=== PATIENT | female | born 1940 | race Caucasian/White ===

== ENCOUNTER 2019-10-19 07:03 | Day surgery (SDC) | payer MEDICARE, OTHER ==
[~2019-10-19] VITALS: Ht 167.6 cm; Wt 83.8 kg
[~2019-10-19 07:03] MED LIST: ASCO500 PO; ASPI325 PO; Aspir 8181 MG PO; BASAGLAR K100 UNIT/1 SC; CALCA500CH PO; CALCIUM PO; CYAN500 PO; Cinnamon500 MG PO; FISH OIL 1,2001 EAC7 PO; FISH1000 PO; GLYB5; Glucophage PO; HUMULIN N100 UNIT/1 SC; INSULANI SC; INSULANPEN SQ; LISI5 PO; LISINOPRIL PO; METF500; METF500 PO; METO50ER PO; METOPROLOL PO; MULT50L PO; MULVITA PO; PRAV20 PO; PRAV40 PO; PROM25 PO; Prinivil10 MG PO; RANI150 PO; TIMO.25OPS OU; TOCO1000 PO; TOCO400 PO; VITA25000 PO; Vitamin C100 M1 PO; Vitamin D2000 UNIT PO; [UNRECOGNIZED DRUG - REMARK] PO
== END 2019-10-19 09:11 | disposition home or self-care (01) ==
LOC: ORSCSDS 07:03
PROVIDERS: Ophthalmology
PROC: 08RK3JZ Replacement of Left Lens with Synthetic Substitute, Percutaneous Approach (ICD-10-PCS; principal; 2019-10-19 08:00)
DX: H25.12 Age-related nuclear cataract, left eye (principal); I10 Essential (primary) hypertension; E11.9 Type 2 diabetes mellitus without complications; E78.00 Pure hypercholesterolemia, unspecified; Z79.4 Long term (current) use of insulin; Z79.84 Long term (current) use of oral hypoglycemic drugs; Z79.899 Other long term (current) drug therapy
CPT/HCPCS: 82947; J2001; J2250; J3010; J3301; J7040; V2632

== ENCOUNTER 2024-10-23 15:55 | Emergency (ER) | payer OTHER ==
[~2024-10-23] VITALS: Ht 167.6 cm; Wt 76.3 kg
[2024-10-23] MEDS ORDERED: Tenecteplase 50 MG / Kit IV ONE (16:25)
[2024-10-23 16:26] LABS: BASOPHILS ABSOLUTE AUTO 0.03 K/mm3 (0.00-0.23); BASOPHILS PERCENT AUTO 1 % (0-2); EOSINOPHILS ABSOLUTE AUTO 0.12 K/mm3 (0.00-0.68); EOSINOPHILS PERCENT AUTO 2 % (0-6); Hematocrit 39.2 % (33.0-51.0); Hemoglobin 13.1 g/dL (11.5-16.0); IMMATURE GRAN ABSOLUTE AUTO 0.02 K/mm3 (0.00-0.10); IMMATURE GRAN PERCENT AUTO 0 % (0-1); LYMPHOCYTES ABSOLUTE AUTO 1.91 K/mm3 (0.84-5.20); LYMPHOCYTES PERCENT AUTO 30 % (21-46); MONOCYTES ABSOLUTE AUTO 0.65 K/mm3 (0.16-1.47); MONOCYTES PERCENT AUTO 10 % (4-13); Mean Corpuscular HGB Conc 33.4 g/dL (31.5-36.5); Mean Corpuscular Volume 90 fL (80-100); NEUTROPHILS ABSOLUTE AUTO 3.71 K/mm3 (1.96-9.15); NEUTROPHILS PERCENT AUTO 58 % (41-73); NRBC ABSOLUTE 0.00 K/mm3 (0.00-0.02); NRBC Auto 0.0 /100 WBC (0.0-0.2); Platelet Count 242 K/mm3 (150-400); RDW Coefficient Variation 11.9 % (11.7-14.2); RDW Standard Deviation 39.1 fL (35.1-46.3)
[2024-10-23 16:37] LABS: Alanine Aminotransfer (ALT/SGP 27.0 U/L (12-78); Albumin, Blood 3.4 g/dL (3.4-5.0); Albumin/Globulin Ratio 0.9 (0.8-1.8); Anion Gap 9.0 mmol/L (3-11); Aspartate Aminotrans (AST/SGOT 24.0 U/L (12-37); Bilirubin, Total 0.5 mg/dL (0.1-1.0); Blood Urea Nitrogen 16.0 mg/dL (8-24); CO2, Blood 28.0 mmol/L (21-32); Calcium, Blood 8.8 mg/dL (8.5-10.1); Chloride, Blood 100.0 mmol/L (98-108); Creatinine, Blood 0.54 mg/dL (0.40-1.00); Globulin, Blood 3.8 g/dL (2.2-4.0); Glucose, Blood 278.0 mg/dL (70-99); Potassium, Blood 4.2 mmol/L (3.5-5.5); Sodium, Blood 133.0 mmol/L (136-145); Total Protein, Blood 7.2 g/dL (6.4-8.2)
[2024-10-23 16:47] LABS: Prothrombin Time Results 11.4 Sec (9.7-11.5)
[2024-10-23] MEDS ORDERED: Dose Adjust by Pharmacy XX STA ×2 (16:54→16:58)
[2024-10-23] MEDS ORDERED: Heparin Sodium 5000 Units/ML 1ML MDV IV ONE (16:55)
[2024-10-23 17:00] VITALS: BP 173/82
[2024-10-23] MEDS ORDERED: Heparin Sodium,Porcine/0.5 NS 500 ML IV SCH (17:00)
== END 2024-10-23 17:30 ==
LOC: ER 15:55
PROVIDERS: Emergency Medicine
DX: I21.4 Non-ST elevation (NSTEMI) myocardial infarction (principal)
CPT/HCPCS: 71045; 80053; 84484; 85025; 85520; 85610; 85730; 93005; 93010; 96374; 96375; 99285-25; A9270; J1644; J3101